=== PATIENT | female | born 1970 | race Caucasian/White ===

== ENCOUNTER 2017-11-03 21:20 | Emergency (ER) | payer OTHER ==
[~2017-11-03] VITALS: Ht 160 cm; Wt 79.4 kg
[2017-11-03 21:40] VITALS: BP 130/78
[2017-11-03 22:56] LABS: BASOPHILS % (AUTO) 0.7 % (0.0-2.0); EOSINOPHILS # (AUTO) 0.1 /CMM (0.0-0.7); EOSINOPHILS % (AUTO) 3.1 % (0.0-6.0); HEMATOCRIT 35 % (33-45); HEMOGLOBIN 12.3 g/dL (11.5-14.8); LYMPHOCYTES # (AUTO) 1.3 /CMM (0.8-4.8); LYMPHOCYTES % (AUTO) 28.5 % (20.0-44.0); MEAN CORPUSCULAR HEMOGLOBIN 32 PG (26.0-33.0); MEAN CORPUSCULAR HGB CONC 35 g/dl (31.0-36.0); MEAN CORPUSCULAR VOLUME 93 fL (82-100); MONOCYTES # (AUTO) 0.2 /CMM (0.1-1.30); MONOCYTES % (AUTO) 4.8 % (2.0-12.0); NEUTROPHILS % (AUTO) 62.9 % (43.0-81.0); PLATELET COUNT (AUTO) 231 /CMM (150-450); RDW COEFFICIENT OF VARIATION 13.1 (11.5-15.0); RED BLOOD CELL COUNT(AUTO) 3.81 MIL/uL (4.0-5.2); WHITE BLOOD COUNT (AUTO) 4.7 K/uL (4.3-11.0)
[2017-11-03 23:04] LABS: CALCIUM, SERUM 8.7 mg/dL (8.5-10.1); CREATININE 1.4 mg/dL (0.6-1.3); POTASSIUM 3.8 mmol/L (3.5-5.1)
[2017-11-03 23:46] LABS: THYROID STIMULATING HORMONE 278.751 uIU/mL (0.358-3.74)
--- NOTE | 2017-11-04 00:24 | NUR ---
Patient discharged to home in stable condition. Written and verbal after care instructions given. Patient verbalizes understanding of instruction. ambulatory with a steady gait noted. pt aaox4 no acute distress noted, resp even and unlabored.
== END 2017-11-04 00:27 | disposition home or self-care (01) ==
LOC: ER 21:20
DX: Z76.0 Encounter for issue of repeat prescription (principal); R60.0 Localized edema; E03.9 Hypothyroidism, unspecified
CPT/HCPCS: 36415; 80048-TC; 84439-TC; 84443-TC; 85025-TC; 93970-TC; A4606; Z7610

== ENCOUNTER 2018-06-17 20:22 | Emergency (ER) | payer OTHER ==
[~2018-06-17] VITALS: Ht 157.5 cm; Wt 79.4 kg
--- NOTE | 2018-06-17 22:30 | NUR ---
BIBRA 94% AOX3 VERABLIZING OF BLE REDNESS AND SWELLING. AMBULATE WELL. NO SOB OR DISTRESS. AFEBRILE. NO -N/V/D/ VSS. MS MADE AWARE.
--- NOTE | 2018-06-18 | NUR ---
LAB DRAWN AT BEDSIDE,
[2018-06-18 00:41] LABS: BASOPHILS % (AUTO) 0.7 % (0.0-2.0); EOSINOPHILS % (AUTO) 2.1 % (0.0-6.0); HEMATOCRIT 30 % (33-45); LYMPHOCYTES # (AUTO) 1.2 /CMM (0.8-4.8); LYMPHOCYTES % (AUTO) 18.9 % (20.0-44.0); MEAN CORPUSCULAR HGB CONC 33 g/dl (31.0-36.0); MEAN CORPUSCULAR VOLUME 95 fL (82-100); MONOCYTES # (AUTO) 0.3 /CMM (0.1-1.30); MONOCYTES % (AUTO) 4.6 % (2.0-12.0); NEUTROPHILS # (AUTO) 4.7 /CMM (1.8-8.9); NEUTROPHILS % (AUTO) 73.7 % (43.0-81.0); PLATELET COUNT (AUTO) 294 /CMM (150-450); RDW COEFFICIENT OF VARIATION 13.6 (11.5-15.0); RED BLOOD CELL COUNT(AUTO) 3.16 MIL/uL (4.0-5.2); WHITE BLOOD COUNT (AUTO) 6.4 K/uL (4.3-11.0)
[2018-06-18 00:55] LABS: INR 0.96 (0.87-1.13)
[2018-06-18 00:57] LABS: CALCIUM, SERUM 8.8 mg/dL (8.5-10.1); CARBON DIOXIDE 32 mmol/L (21-32); CHLORIDE 100 mmol/L (98-107); CREATININE 1.7 mg/dL (0.6-1.3); GLUCOSE 96 mg/dL (74-106); POTASSIUM 3.6 mmol/L (3.5-5.1); SODIUM SERUM 138 mmol/L (136-145); UREA NITROGEN, BLOOD 19 mg/dL (7-18)
[2018-06-18 01:02] LABS: ALANINE AMINOTRANSFERASE 59 U/L (12-78); ALBUMIN 3.9 g/dL (3.4-5.0); ALKALINE PHOSPHATASE 81 U/L (46-116); ASPARTATE AMINOTRANSFERASE 107 U/L (15-37); BILIRUBIN,DIRECT 0.1 mg/dL (0.0-0.2); BILIRUBIN,TOTAL 0.4 mg/dL (0.2-1.0); TOTAL PROTEIN, SERUM 7.5 g/dL (6.4-8.2)
[2018-06-18 01:03] LABS: TROPONIN I < 0.017 ng/mL (0.00-0.056)
[2018-06-18 01:40] LABS: THYROID STIMULATING HORMONE 105.18 uIU/mL (0.358-3.74)
--- NOTE | 2018-06-18 02:50 | NUR ---
Patient discharged to home in stable condition. Written and verbal after care instructions given. Patient verbalizes understanding of instruction. PA EXPLAINED ABOUT DIAGNOSIS. PT DC ACCOMPANIED BY FRIEND. VSS.
[2018-06-18 03:25] VITALS: BP 126/79
== END 2018-06-18 03:26 | disposition home or self-care (01) ==
LOC: ER 20:25
DX: E03.9 Hypothyroidism, unspecified (principal); R60.0 Localized edema; I45.81 Long QT syndrome
CPT/HCPCS: 36415; 71045; 80048; 80076; 83880; 84443; 84484; 85025; 85730; 93005; 99285; A4606; Z7610

== ENCOUNTER 2020-02-10 17:24 | Emergency (ER) | payer SELFPAY ==
[~2020-02-10] VITALS: Ht 160 cm; Wt 79.4 kg
[2020-02-10 17:42] VITALS: BP 130/79
--- NOTE | 2020-02-10 18:12 | NUR ---
Patient discharged to home in stable condition. Written and verbal after care instructions given. Patient verbalizes understanding of instruction.
== END 2020-02-10 18:13 | disposition home or self-care (01) ==
LOC: ER 17:30
DX: E03.9 Hypothyroidism, unspecified (principal); R60.0 Localized edema; Z76.0 Encounter for issue of repeat prescription; Z60.2 Problems related to living alone

== ENCOUNTER 2021-08-03 16:57 | Inpatient (IN) | payer SELFPAY ==
[~2021-08-03] VITALS: Ht 160 cm; Wt 76.7 kg
[2021-08-03] MEDS ORDERED: VANCOMYCIN 1 GM in IV D5W 250 ML IV ONE (17:30)
[2021-08-03] MEDS ORDERED: TDAP [DIPH/PERTUSSIS/TET] 0.5 ML VIAL IM ONE ×2 (17:30→17:58)
[2021-08-03] MEDS ORDERED: IV NS 0.9% 1,000 ML BAG IV ONE (17:30)
[2021-08-03] MEDS ORDERED: ACETAMINOPHEN ES 500 MG TABLET PO ONE (17:30)
--- NOTE | 2021-08-03 17:31 | NUR ---
c/o left elbow pain x 4 days, 04/16 ps. PT AAOX4, RR EVEN & UNLABORED. DENIES CP, SOB, DIZZINESS, N/V AT THIS TIME. PT SEEN & EVAL'D BY GORGE WELLS. WILL CONT TO MONITOR.
[2021-08-03 17:43] LABS: BASOPHILS % (AUTO) 0.5 % (0.0-2.0); EOSINOPHILS % (AUTO) 1.3 % (0.0-6.0); HEMATOCRIT 37 % (33-45); HEMOGLOBIN 12.2 g/dL (11.5-14.8); LYMPHOCYTES # (AUTO) 1.2 K/uL (0.8-4.8); LYMPHOCYTES % (AUTO) 13.2 % (20.0-44.0); MEAN CORPUSCULAR HGB CONC 33 g/dl (31.0-36.0); MEAN CORPUSCULAR VOLUME 91 fL (82-100); MONOCYTES # (AUTO) 0.4 K/uL (0.1-1.30); MONOCYTES % (AUTO) 4.5 % (2.0-12.0); NEUTROPHILS # (AUTO) 7.4 K/uL (1.8-8.9); NEUTROPHILS % (AUTO) 80.5 % (43.0-81.0); PLATELET COUNT (AUTO) 268 K/uL (150-450); RED BLOOD CELL COUNT(AUTO) 4.08 MIL/uL (4.0-5.2); WHITE BLOOD COUNT (AUTO) 9.2 K/uL (4.3-11.0)
[2021-08-03 17:56] LABS: CALCIUM, SERUM 8.2 mg/dL (8.5-10.1); CREATININE 1.2 mg/dL (0.6-1.3); POTASSIUM 3.3 mmol/L (3.5-5.1)
[2021-08-03] MEDS ORDERED: ACETAMINOPHEN ES 500 MG TABLET ONE (17:56)
[2021-08-03 18:00] LABS: ALBUMIN 3.4 g/dL (3.4-5.0); BILIRUBIN,DIRECT 0.1 mg/dL (0.0-0.2); BILIRUBIN,TOTAL 0.5 mg/dL (0.2-1.0); TOTAL PROTEIN, SERUM 7.6 g/dL (6.4-8.2)
--- NOTE | 2021-08-03 18:08 | NUR ---
MOVE SHEET SUBMITTED AND CALLED FOR BED.
[2021-08-03] MEDS ORDERED: POTASSIUM CHLORIDE 20 MEQ TAB.PRT.SR PO ONE ×2 (18:26→18:30)
--- NOTE | 2021-08-03 18:31 | NUR ---
MEDICATED PER GORGE WELLS'S ORDER, PT ABA WELL. WILL CONT TO MONITOR.
[2021-08-03] MEDS ORDERED: CALCIUM CARBONATE 500 MG TAB.CHEW ONE (20:52)
[2021-08-03] MEDS ORDERED: CALCIUM CARBONATE 500 MG TAB.CHEW PO ONE (21:00)
--- NOTE | 2021-08-03 21:05 | NUR ---
PATIENT AMBULATES TO RESTROOM AND RETURNED TO BED. PT TOLERATING PO FLUIDS. VSS. WILL CONTINUE TO MONITOR.
--- NOTE | 2021-08-03 21:30 | NUR ---
CALLED [facility], PAGED DR GARCÍA
--- NOTE | 2021-08-03 22:50 | NUR ---
REPORT GIVEN TO AMBREEN TOBIAS
--- NOTE | 2021-08-03 23:07 | NUR ---
PATIENT TRANSFERRED, VSS.
--- NOTE | 2021-08-03 23:16 | NUR ---
FRONT DESK MANAGER NOTES RECEIVED PT FROM John TO RM.[id number] VIA ÁLVARO ACCOMPANIED BY CONTENT EDITOR. DX. CELLULITS, CC: L-ELBOW PAIN X4DAYS. PT AWAKE, A/OX4, ABLE TO VERBALIZE NEEDS. ASSESSED SKIN, WITH L-UPPER ARM/L-ELBOW SWOLLEN AND HARD TO TOUCH, WITH RAISED RED/HARDENED SKIN ON ANTECUBITAL AREA. PT REPORTS THAT SHE USES METH ABOUT EVERY OTHER DAY AND USES THIS SITE FOR INJECTIONS. PT STATES THAT THE LAST TIME SHE USED METH WAS 4 DAYS AGO, AND THAT'S ALSO THE TIME THAT SHE STARTED ON A PROGRAM "NARCOTICS ANONYMOUS" AT [facility] WHERE SHE SAID SHE CURRENTLY LIVES IN. PT DENIES PAIN AT THIS TIME, BUT STATES THAT THE AREA IS PAINFUL WHEN TOUCHED. PT IN NO ACUTE DISTRESS. ORIENTED TO ROOM, STAFF AND POLICIES. PT VERBALIZED UNDERSTANDING. PT AMBULATORY WITH SLOW, STEADY GAIT. SAFETY MEASURES IN PLACE. WILL CONT TO MONITOR.
[2021-08-03] MEDS ORDERED: Z GUARD REMEDY 2 OZ OINT TP PRN (23:30)
[2021-08-03] MEDS ORDERED: MAG HYDROX/AL HYDROX/SIMETH 30 ML UDC PO PRN (23:30)
[2021-08-03] MEDS ORDERED: ACETAMINOPHEN 325 MG TABLET PO PRN (23:30)
[2021-08-03] MEDS ORDERED: ZOLPIDEM TARTRATE 5 MG TABLET PO PRN (23:30)
[2021-08-03] MEDS ORDERED: IV NS 0.9% 1,000 ML IV PRN (23:30)
[2021-08-03] MEDS ORDERED: ONDANSETRON HCL/PF 4 MG/2 ML VIAL IVP PRN (23:30)
[2021-08-03] MEDS ORDERED: MAGNESIUM HYDROXIDE 30 ML UDC PO PRN (23:30)
[2021-08-03] MEDS ORDERED: PIPERACILLIN /TAZOBACTAM 3.375 G VIAL IV ONE (23:54)
[2021-08-03] MEDS: ZOSYN IVPB 3.375 G in IV D5W 50ml IV SCH (23:55)
--- NOTE | 2021-08-03 23:55 | NUR ---
RN NOTE OBTAINED ZOSYN 3.375G FROM CHARGE NURSE FROM [facility]
[2021-08-03 23:58] VITALS: BP 123/82
[2021-08-04] MEDS: HYDROCODONE/APAP 5/325MG TABLET PO PRN ×4 (02:16→22:47)
--- NOTE | 2021-08-04 02:16 | NUR ---
MS RN NOTES PATIENT CURRENT C/O 7/10 SHARP PAIN IN LEFT ARM. PATIENT WAS GIVEN 1 TAB OF NORCO (5/325MG) PO AT THIS TIME. WILL CONTINUE TO MONITOR THE PATIENT.
--- NOTE | 2021-08-04 02:16 | NUR ---
MS RN NOTES PATIENT C/O 7/10 SHARP PAIN IN LEFT ARM. PATIENT WAS GIVEN 1 TAB OF NORCO (5/325MG) PO. WILL MONITOR THE PATIENT.
[2021-08-04 05:10] VITALS: BP 123/82
[2021-08-04] MEDS ORDERED: PIPERACILLIN /TAZOBACTAM 3.375 G VIAL IV ONE (05:37)
[2021-08-04] MEDS: ZOSYN IVPB 3.375 G in IV D5W 50ml IV SCH ×4 (05:53→23:28)
--- NOTE | 2021-08-04 05:57 | NUR ---
RN NOTE OBTAINED ZOSYN 3.375G FROM CHARGE NURSE FROM [facility]
[2021-08-04 06:54] LABS: BASOPHILS # (AUTO) 0.1 K/uL (0.0-0.2); BASOPHILS % (AUTO) 1.1 % (0.0-2.0); EOSINOPHILS % (AUTO) 1.2 % (0.0-6.0); HEMATOCRIT 34 % (33-45); HEMOGLOBIN 11.3 g/dL (11.5-14.8); LYMPHOCYTES # (AUTO) 1.2 K/uL (0.8-4.8); MEAN CORPUSCULAR HGB CONC 34 g/dl (31.0-36.0); MEAN CORPUSCULAR VOLUME 91 fL (82-100); MONOCYTES # (AUTO) 0.5 K/uL (0.1-1.30); MONOCYTES % (AUTO) 5.3 % (2.0-12.0); NEUTROPHILS # (AUTO) 7.1 K/uL (1.8-8.9); NEUTROPHILS % (AUTO) 79.4 % (43.0-81.0); PLATELET COUNT (AUTO) 202 K/uL (150-450)
--- NOTE | 2021-08-04 07:14 | NUR ---
MS/RN CLOSING NOTE PT RESTING IN BED, EASILY AROUSABLE TO STIMULI. PT SLEPT WELL DURING THE NIGHT. NO ACUTE EVENTS NOTED. PT ABLE TO AMBULATE TO BR INDEPENDENTLY WITH STEADY GAIT. IV SITE TO R-AC INTACT/PATENT, INFUSING NS @75ML/HR. PT IN NO ACUTE DISTRESS. SAFETY MEASURES MAINTAINED. ALL NEEDS ATTENDED TO.
[2021-08-04 07:35] LABS: CALCIUM, SERUM 8.6 mg/dL (8.5-10.1); CREATININE 1.1 mg/dL (0.6-1.3); PHOSPHORUS 3.4 mg/dL (2.5-4.9); POTASSIUM 3.6 mmol/L (3.5-5.1)
[2021-08-04 08:00] VITALS: BP 99/70
--- NOTE | 2021-08-04 08:17 | NUR ---
MS RN OPENING NOTES RECEIVED Pt AWAKE IN BED A/O X4. Pt SLEPT WELL DURING THE NIGHT. NO SIGNS OF PAIN OR DISTRESS NOTED AT THIS TIME. Pt ABLE TO MAKE NEEDS KNOWN AND AMBULATES TO BR INDEPENDENTLY WITH STEADY GAIT. IV ACCESS ON R-AC 20g. IT IS INTACT & PATENT, INFUSING NS @75ML/HR. SAFETY MEASURES IN PLACE: BED IS LOCKED AND IN LOWEST POSITION, 2 SIDE RAILS UP, BEDSIDE TABLE AND CALL LIGHT ARE WITHIN REACH. WILL CONTINUE TO MONITOR THROUGHOUT THE SHIFT
[2021-08-04] MEDS: PANTOPRAZOLE 40 MG TABLET.DR PO SCH (08:36)
[2021-08-04] MEDS: VANCOMYCIN 1 GM in IV D5W 250ml IV SCH ×2 (08:36→20:08)
[2021-08-04] MEDS ORDERED: LEVO112T39 PO (08:41)
[2021-08-04 08:42] LABS: THYROID STIMULATING HORMONE 129.971 uIU/mL (0.358-3.74)
[2021-08-04] MEDS: LEVOTHYROXINE INJ 100 MCG VIAL IV SCH (12:42)
--- NOTE | 2021-08-04 19:20 | NUR ---
MS RN OPENING NOTE PT RESTING IN BED, A/OX4, DENIES PAIN AT THIS TIME. RESPIRATIONS EVEN/UNLABORED. IV SITE R-AC #20G INTACT/PATENT, RUNNING NS @75ML/HR. PT WITH DRESSING TO L-ARM IN PLACE, C/D/I. PT AMBULATES TO BR INDEPENDENTLY WITH STEADY GAIT. PT IN NO ACUTE DISTRESS. SAFETY MEASURES MAINTAINED, BED IN LOWEST LOCKED POSITION, S/R UP X2, CALL LIGHT WITHIN REACH. WILL CONT TO MONITOR.
--- NOTE | 2021-08-04 19:39 | NUR ---
MS RN CLOSING NOTES PT. AWAKE IN BED A/O X4. NO SIGNS OF PAIN OR DISTRESS NOTED AT THIS TIME. Pt ABLE TO MAKE NEEDS KNOWN AND AMBULATES TO BR INDEPENDENTLY WITH STEADY GAIT. IV ACCESS ON R-AC 20g. IT IS INTACT & PATENT ON SALINE LOCK. SAFETY MEASURES IN PLACE: BED IS LOCKED AND IN LOWEST POSITION, 2 SIDE RAILS UP, BEDSIDE TABLE AND CALL LIGHT ARE WITHIN REACH. WILL ENDORSE TO THE NEXT SHIFT FOR CHRISTOPHER.
[2021-08-04 20:00] VITALS: BP 116/70
[2021-08-05] MEDS: HYDROCODONE/APAP 5/325MG TABLET PO PRN ×2 (02:05→07:53)
[2021-08-05] MEDS: ZOSYN IVPB 3.375 G in IV D5W 50ml IV SCH (05:34)
--- NOTE | 2021-08-05 07:20 | NUR ---
MS/RN CLOSING NOTE PT RESTING IN BED, EASILY AROUSABLE TO STIMULI, DENIES PAIN AT THIS TIME. PT SLEPT WELL DURING THE NIGHT. NO ACUTE EVENTS NOTED. PT ABLE TO AMBULATE TO BR INDEPENDENTLY WITH STEADY GAIT. IV SITE TO R-AC INTACT/PATENT, INFUSING NS @75ML/HR. PT IN NO ACUTE DISTRESS. SAFETY MEASURES MAINTAINED. ALL NEEDS ATTENDED TO.
--- NOTE | 2021-08-05 07:30 | NUR ---
MS RN OPENING NOTES RECEIVED PT AWAKE IN BED A/O X4. NO SIGNS OF PAIN OR DISCOMFORT NOTED AT THIS TIME. ON ROOM AIR, NO SOB NOTED, BREATHING EVEN AND UNLABORED. PT ABLE TO MAKE NEEDS KNOWN AND AMBULATES TO BR INDEPENDENTLY WITH STEADY GAIT. IV ACCESS ON R-AC #20G, INTACT & PATENT. SAFETY MEASURES IN PLACE: BED IS LOCKED AND IN LOWEST POSITION, 2 SIDE RAILS UP, BEDSIDE TABLE AND CALL LIGHT ARE WITHIN REACH. WILL CONTINUE TO MONITOR THROUGHOUT THE SHIFT
[2021-08-05 07:44] LABS: BASOPHILS # (AUTO) 0.1 K/uL (0.0-0.2); BASOPHILS % (AUTO) 0.9 % (0.0-2.0); EOSINOPHILS % (AUTO) 2.2 % (0.0-6.0); HEMATOCRIT 33 % (33-45); HEMOGLOBIN 11.2 g/dL (11.5-14.8); LYMPHOCYTES # (AUTO) 1.3 K/uL (0.8-4.8); LYMPHOCYTES % (AUTO) 19.4 % (20.0-44.0); MEAN CORPUSCULAR HGB CONC 34 g/dl (31.0-36.0); MEAN CORPUSCULAR VOLUME 90 fL (82-100); MONOCYTES # (AUTO) 0.3 K/uL (0.1-1.30); MONOCYTES % (AUTO) 4.8 % (2.0-12.0); NEUTROPHILS % (AUTO) 72.7 % (43.0-81.0); PLATELET COUNT (AUTO) 236 K/uL (150-450); RED BLOOD CELL COUNT(AUTO) 3.69 MIL/uL (4.0-5.2); WHITE BLOOD COUNT (AUTO) 6.8 K/uL (4.3-11.0)
[2021-08-05] MEDS: PANTOPRAZOLE 40 MG TABLET.DR PO SCH (07:53)
[2021-08-05 08:00] VITALS: BP 128/78
[2021-08-05] MEDS: LEVOTHYROXINE INJ 100 MCG VIAL IV SCH (08:01)
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
[2021-08-05 08:50] LABS: CALCIUM, SERUM 8.4 mg/dL (8.5-10.1); CREATININE 1.2 mg/dL (0.6-1.3); MAGNESIUM 2.1 mg/dL (1.8-2.4); PHOSPHORUS 3.5 mg/dL (2.5-4.9); POTASSIUM 3.4 mmol/L (3.5-5.1)
--- NOTE | 2021-08-05 09:45 | NUR ---
RN NOTES PT CALLED TO HER ROOM. SHE REMOVED HER WOUND DRESSING ON THE LEFT ARM. CLEANSED WOUND WITH NS, PAT DRIED AND COVERED WITH CLEAN DRY DRESSING.
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
--- NOTE | 2021-08-05 10:45 | NUR ---
RN NOTES CALLED [employer], BUT NO ANSWER. LEFT MESSAGE REGARDING THE INCIDENT FOR PT.
--- NOTE | 2021-08-05 15:00 | NUR ---
SW attempted to meet with pt. for safe DC planning. However, pt. had left AMA.
== END 2021-08-05 10:00 | disposition left against medical advice (07) | DRG 603 ==
LOC: ER 17:01 → MED 22:34
PROVIDERS: ADMIT Student in an Organized Health Care Education/Training Program; ATTEND Student in an Organized Health Care Education/Training Program
DX: L03.114 Cellulitis of left upper limb (principal); L02.414 Cutaneous abscess of left upper limb; Z20.822 Contact with and (suspected) exposure to COVID-19; E87.6 Hypokalemia; E03.9 Hypothyroidism, unspecified; Z59.00 Homelessness unspecified; F15.10 Other stimulant abuse, uncomplicated
CPT/HCPCS: 36415; 80048-TC; 80061-TC; 80076-TC; 80202-TC; 83605-TC; 83735-TC; 84100-TC; 84439-TC; 84443-TC; 85025-TC; 87040-TC; 87070-TC; 87081-TC; 90715; A6403; C9803; G0378; J2543; J3370; J7030; J7060

== ENCOUNTER 2021-08-06 09:57 | Inpatient (IN) | payer SELFPAY ==
[~2021-08-06] VITALS: Ht 160 cm; Wt 84.4 kg
[~2021-08-06 09:57] MED LIST: LEVO112T39 PO
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
[2021-08-06 11:08] LABS: BASOPHILS # (AUTO) 0.1 K/uL (0.0-0.2); BASOPHILS % (AUTO) 1.4 % (0.0-2.0); EOSINOPHILS % (AUTO) 2.2 % (0.0-6.0); HEMATOCRIT 33 % (33-45); HEMOGLOBIN 11.2 g/dL (11.5-14.8); LYMPHOCYTES # (AUTO) 2.4 K/uL (0.8-4.8); LYMPHOCYTES % (AUTO) 37.6 % (20.0-44.0); MEAN CORPUSCULAR HGB CONC 34 g/dl (31.0-36.0); MEAN CORPUSCULAR VOLUME 90 fL (82-100); MONOCYTES # (AUTO) 0.3 K/uL (0.1-1.30); MONOCYTES % (AUTO) 4.8 % (2.0-12.0); NEUTROPHILS # (AUTO) 3.4 K/uL (1.8-8.9); PLATELET COUNT (AUTO) 333 K/uL (150-450); RED BLOOD CELL COUNT(AUTO) 3.72 MIL/uL (4.0-5.2); WHITE BLOOD COUNT (AUTO) 6.3 K/uL (4.3-11.0)
[2021-08-06 11:17] LABS: CALCIUM, SERUM 8.3 mg/dL (8.5-10.1); POTASSIUM 3.4 mmol/L (3.5-5.1)
[2021-08-06] MEDS ORDERED: HYDROCODONE/APAP 5/325MG TABLET PO PRN (12:30)
[2021-08-06] MEDS ORDERED: MAG HYDROX/AL HYDROX/SIMETH 30 ML UDC PO PRN (12:30)
[2021-08-06] MEDS ORDERED: ACETAMINOPHEN 325 MG TABLET PO PRN (12:30)
[2021-08-06] MEDS ORDERED: ONDANSETRON HCL/PF 4 MG/2 ML VIAL IVP PRN (12:30)
[2021-08-06] MEDS ORDERED: MAGNESIUM HYDROXIDE 30 ML UDC PO PRN (12:30)
[2021-08-06] MEDS ORDERED: Z GUARD REMEDY 2 OZ OINT TP PRN (12:30)
[2021-08-06] MEDS ORDERED: VANCOMYCIN 1 GM in IV D5W 250 ML IV ONE (13:30)
--- NOTE | 2021-08-06 13:45 | NUR ---
MOVE SHEET SUBMITTED.
--- NOTE | 2021-08-06 14:00 | NUR ---
PT AMBULATED TO RESTROOM
--- NOTE | 2021-08-06 14:03 | NUR ---
[facility] REPAGED.
--- NOTE | 2021-08-06 14:10 | NUR ---
PT RETURNED FROM BATHROOM AND ASSISTED TO BED
--- NOTE | 2021-08-06 14:49 | NUR ---
CALLED FOR BED.
--- NOTE | 2021-08-06 15:38 | NUR ---
CALLED [facility] AGAIN
[2021-08-06] MEDS ORDERED: IOHEXOL-300 100 ML VIAL IV ONE (16:27)
[2021-08-06] MEDS ORDERED: IV NS 0.9% 250 ML IV ONE (16:27)
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
[2021-08-06] MEDS: PIPERACILLIN /TAZOBACTAM 3.375 G in IV D5W 50 ML IV SCH (18:23)
--- NOTE | 2021-08-06 20:23 | NUR ---
MS BED 118-2
--- NOTE | 2021-08-06 20:42 | NUR ---
REPORT GIVEN TO KENNY.
--- NOTE | 2021-08-06 20:49 | NUR ---
PT TRANSFERRED TO [facility].
--- NOTE | 2021-08-06 20:50 | NUR ---
ADMIT NOTE RECEIVED PATIENT FROM ER, TRANSFERRED TO ROOM 118-2. PATIENT SAFELY AMBULATED TO BED. PT IS ALERT AND ORIENTED X3, ABLE TO MAKE NEEDS KNOWN. ON ROOM AIR, O2 SAT 97%. NO S/S OF RESPIRATORY DISTRESS. DENIES ANY PAIN OR DISCOMFORT. IV ACCESS ON RIGHT AC #20 PATENT AND INTACT. SKIN ASSESSMENT DONE, NOTED WITH LEFT ARM WOUND/CELLULITIS. BILATERAL LOWER LEG EDEMA +2. ABLE TO LIST A FEW BELONGINGS, HOWEVER PATIENT DID NOT WANT STAFF TO LOOK THROUGH HER PURSE. EXPLAINED IMPORTANCE OF CHECKING, AND REFUSED ADAMANTLY. ORIENTED PATIENT TO ROOM AND USE OF CALL LIGHT. BED LOCKED AND IN LOWEST POSITION. ALL NEEDS ANTICIPATED.
[2021-08-07] MEDS: PIPERACILLIN /TAZOBACTAM 3.375 G in IV D5W 50 ML IV SCH ×3 (00:07→11:23)
[2021-08-07] MEDS: VANCOMYCIN 1 GM in IV D5W 250ml IV SCH ×2 (02:34→13:38)
[2021-08-07 04:00] VITALS: BP 110/68
--- NOTE | 2021-08-07 06:58 | NUR ---
WOUND CARE CONSULT: REVIEWED CHART, NURSING DOCUMENTATION AND PHOTO WHICH INDICATES PURULENT WOUND TO LEFT UPPER ARM, PRESENT ON ADMISSION. AWAITING ORTHO CONSULT. RECOMMENDATIONS MADE FOR WOUND CARE AND DISCUSSED WITH NURSING STAFF. IN AGREEMENT WITH PLAN OF CARE. Addendum: 08/07/21 at 0704 by COLTON HILLMAN WNDNU CORRECTION: ORTHO CONSULT WAS DONE.
--- NOTE | 2021-08-07 07:18 | NUR ---
RN NOTE PATIENT IS AWAKE, ALERT, AND ORIENTED. ON ROOM AIR, O2 SAT 100%. NO S/S OF RESPIRATORY DISTRESS. DENIES ANY PAIN OR DISCOMFORT. IV ACCESS ON RIGHT AC #20 PATENT AND INTACT. ALL DUE MEDS GIVEN ORDERED AND TOLERATED WELL. NO ADVERSE EFFECT NOTED. BED LOCKED AND IN LOWEST POSITION. CALL LIGHT WITHIN REACH. WILL ENDORSE TO AM SHIFT.
[2021-08-07] MEDS ORDERED: LEVOTHYROXINE INJ 100 MCG VIAL IV SCH (07:30)
[2021-08-07] MEDS: PANTOPRAZOLE 40 MG TABLET.DR PO SCH (07:30)
--- NOTE | 2021-08-07 07:30 | NUR ---
MS RN OPENING NOTES RECEIVED PATIENT AWAKE ON BED AND A/O X4. ON ROOM AIR TOLERATING WELL. NO SOB NOTED. NOT IN DISTRESS. WITH NO COMPLAINTS OF PAIN OR DISCOMFORT AT THIS TIME. WITH IV ACCESS AT RIGHT AC G20 SALINE LOCKED, PATENT AND INTACT. SAFETY MEASURES IN PLACE. CALL LIGHT WITHIN REACH. BED ON LOWEST AND LOCKED POSITION, SIDE RAILS UP X2. WILL CONTINUE TO MONITOR.
[2021-08-07 08:22] LABS: BASOPHILS # (AUTO) 0.1 K/uL (0.0-0.2); BASOPHILS % (AUTO) 1.3 % (0.0-2.0); EOSINOPHILS % (AUTO) 3.1 % (0.0-6.0); HEMATOCRIT 37 % (33-45); HEMOGLOBIN 12.2 g/dL (11.5-14.8); LYMPHOCYTES # (AUTO) 1.6 K/uL (0.8-4.8); LYMPHOCYTES % (AUTO) 26.4 % (20.0-44.0); MEAN CORPUSCULAR HGB CONC 33 g/dl (31.0-36.0); MEAN CORPUSCULAR VOLUME 92 fL (82-100); MONOCYTES # (AUTO) 0.4 K/uL (0.1-1.30); MONOCYTES % (AUTO) 6.5 % (2.0-12.0); NEUTROPHILS # (AUTO) 3.8 K/uL (1.8-8.9); NEUTROPHILS % (AUTO) 62.7 % (43.0-81.0); PLATELET COUNT (AUTO) 217 K/uL (150-450); RED BLOOD CELL COUNT(AUTO) 4.01 MIL/uL (4.0-5.2); WHITE BLOOD COUNT (AUTO) 6.1 K/uL (4.3-11.0)
[2021-08-07 08:44] LABS: CALCIUM, SERUM 8.6 mg/dL (8.5-10.1); CREATININE 1.3 mg/dL (0.6-1.3); MAGNESIUM 2.6 mg/dL (1.8-2.4); PHOSPHORUS 4.7 mg/dL (2.5-4.9); POTASSIUM 3.8 mmol/L (3.5-5.1)
[2021-08-07] MEDS: NICOTINE PATCH (7MG) 7 MG PATCH.TD24 TD SCH (08:52)
--- NOTE | 2021-08-07 11:12 | NUR ---
"SS Consult: SS consult for homelessness. Pt. Is a 51-year-old female. Pt. demonstrates adequate insight to the reason for hospitalization. Pt. was oriented x3, alert, and cooperative. During interview, pt. was capable of following directions, made appropriate eye-contact, and appeared unkempt. Evidenced by: messy hair. Pt.s speech was at a normal rate. SW explored pt.s Hx of mental health and substance abuse. Pt. reported having Hx of depression/anxiety. Per pt., she has Hx of methamphetamine, but is not currently using. Pt. reported no suicidal or homicidal. Pt. denies auditory hallucinations, visual hallucinations, paranoia, or delusions. SW explored pt.s living situation. Per pt., she is currently homeless and lives in tiny houses. Per pt., she reports having adequate support from friends. Pt. was willing to sign homeless waiver, and its placed in pt.s chart. Plan: SW provided available homeless and addiction resources and pt. accepted. Once discharge, per pt., [facility] [address not provided]. Resources Provided: Year-round shelters: [place] [address] [place] [address] ; [facility] [address] [place] [address]; [place] [facility] [id number] [facility] [address] Winter Shelters: [place] Libia [place] Provider: [facility] [place] Address: [address] [place], [address] # of Beds: 47 Population Served: [facility] 6 | [facility] Reena Dia [place] Provider: [facility] Address: [address], [address] # of Beds: 66 Population Served: [facility] Addashop [place] Provider: [facility] Address: [address] [facility], [address] # of Beds: 56 Population Served: [facility] Boubacar [place] Provider: /[facility] Address: [address] [facility], [address] # of Beds: 49 Population Served: [place] SPA 8 | [place] Provider: [facility] Serve Address: [address] [facility] [address]valos[address] # of Beds: 37 Population Served: [place] Hygiene: [facility]: [address] [place] ; [facility] [address] [facility] ; [facility] [address] [place] . Food Resources: [place] [facility] at [facility]- [address] [place]; Meet Each Need with Dignity ([facility]) [address] [facility] [place]; [facility] [address] [facility] [facility]; [facility] [address] [facility]. Mental Health resources provided: [facility] [address] [place], [place] [phone] ; [facility] [address] [facility] [address], [place], [place] [id number] ; [place] [facility] [address], [place] [phone] ; [facility] [address] [place], [place] [address] Healthcare Clinics: [facility] [address] [place]. [place] ; [facility] [address] [facility] [address] [place] [address]; [facility] Health [place] [address] [facility]. [place] [phone] Counseling--[facility] [address] [facility], [facility] [place], [place] [phone] (Specializes in in-depth psychotherapy for emotional distress: anxiety, depression, interpersonal conflicts, life transitions, childhood abuse) [place] [id number] [place] [address] (Assist with solving problem marital difficulties, separation & divorce, aging parents, & grief, chronic & terminal illness) [facility] [address] [place] [address] (Deal with loss & grief, anxiety, marital difficulties) Homebound/Mental Health Services [address] [facility] [facility] [address] [place], [place] [phone] (Provide in-home mental services to people who are incapable of leaving their homes) Organization for Needs of the Elderly Senior Service/Resource Center [address] [place] [address] [facility] [address] [facility] [place] [address] PSYCHIATRIC OUTPATIENT SERVICES [facility] Partial Hospitalization and Intensive Outpatient Program (Managed Care and [place] Only)[address] [facility] [phone] [facility] Partial Hospitalization and Outpatient [id number] [place], [place] [phone] [facility] Mental Health [place] Cag[address] [facility]. [address] [place], [place] [phone] [facility] Partial Hospitalization and Outpatient [id number] [place], [phone] Substance Abuse resources provided included: [facility] Substance Abuse Self-Helpline (SAS) ; CRI -HELP [address] [facility]. [place] [address] ; [facility] [address] [facility] [address] ; [facility] [address] [facility] [address] ; [facility] [place] [address] [facility] [address] ; [facility] [address] [place] [facility] [address] ; [facility] [address] [facility] [phone] ; [facility] Substance Abuse Helpline(SAS)-[facility] ; [facility] ; [facility] [place]; [facility]; [facility] [place]; [facility] Pravin [place]; [facility]; [facility]; [facility]; [facility], [facility]. [place]; Alcoholics Anonymous -SFV; Jk-Hgjr-Rlyxobj ; Marijuana Anonymous -SFV; Narcotics Anonymous www.na.org;"
[2021-08-07 12:00] VITALS: BP 110/68
--- NOTE | 2021-08-07 18:42 | NUR ---
MS RN CLOSING NOTES PATIENT RESTING ON BED AND A/O X4. ON ROOM AIR TOLERATING WELL. NO SOB NOTED. NOT IN DISTRESS. WITH NO COMPLAINTS OF PAIN OR DISCOMFORT AT THIS TIME. WITH IV ACCESS AT RIGHT AC G20 SALINE LOCKED, PATENT AND INTACT. DUE MEDS GIVEN. SAFETY MEASURES IN PLACE. CALL LIGHT WITHIN REACH. BED ON LOWEST AND LOCKED POSITION, SIDE RAILS UP X2. WILL ENDORSE TO NEXT SHIFT FOR CHRISTOPHER.
[2021-08-07 20:00] VITALS: BP 121/77
[2021-08-07] MEDS: METRONIDAZOLE 500 MG TABLET PO SCH (22:08)
[2021-08-07] MEDS: CEFEPIME 2 GM in IV D5W 100 ML IV SCH (22:08)
[2021-08-08] MEDS: VANCOMYCIN 0.75 GM in IV D5W 250 ML IV SCH ×2 (02:07→13:28)
[2021-08-08 04:00] VITALS: BP 140/78
[2021-08-08] MEDS: METRONIDAZOLE 500 MG TABLET PO SCH ×3 (06:25→20:23)
--- NOTE | 2021-08-08 07:40 | NUR ---
MS RN OPENING NOTES RECEIVED PATIENT AWAKE ON BED AND A/O X4. ON ROOM AIR, TOLERATING WELL. NO SOB NOTED. NO SIGNS OR SYMPTOMS OF DISTRESS NOTED. WITH NO COMPLAINTS OF PAIN OR DISCOMFORT AT THIS TIME. WITH IV ACCESS AT RIGHT AC G20 SALINE LOCKED, PATENT AND INTACT. SAFETY MEASURES IN PLACE. CALL LIGHT WITHIN REACH. BED ON LOWEST AND LOCKED POSITION, SIDE RAILS UP X2. WILL CONTINUE TO MONITOR FOR CHANGES IN CONDITION.
[2021-08-08 08:12] LABS: BASOPHILS # (AUTO) 0.1 K/uL (0.0-0.2); BASOPHILS % (AUTO) 0.9 % (0.0-2.0); EOSINOPHILS % (AUTO) 2.7 % (0.0-6.0); HEMATOCRIT 37 % (33-45); HEMOGLOBIN 12.2 g/dL (11.5-14.8); LYMPHOCYTES % (AUTO) 23.3 % (20.0-44.0); MEAN CORPUSCULAR HGB CONC 33 g/dl (31.0-36.0); MEAN CORPUSCULAR VOLUME 91 fL (82-100); MONOCYTES # (AUTO) 0.6 K/uL (0.1-1.30); MONOCYTES % (AUTO) 7.3 % (2.0-12.0); NEUTROPHILS # (AUTO) 5.6 K/uL (1.8-8.9); NEUTROPHILS % (AUTO) 65.8 % (43.0-81.0); PLATELET COUNT (AUTO) 312 K/uL (150-450); RED BLOOD CELL COUNT(AUTO) 4.05 MIL/uL (4.0-5.2); WHITE BLOOD COUNT (AUTO) 8.5 K/uL (4.3-11.0)
[2021-08-08 08:18] LABS: CALCIUM, SERUM 8.6 mg/dL (8.5-10.1); CREATININE 1.3 mg/dL (0.6-1.3); MAGNESIUM 2.6 mg/dL (1.8-2.4); PHOSPHORUS 4.8 mg/dL (2.5-4.9)
[2021-08-08] MEDS: PANTOPRAZOLE 40 MG TABLET.DR PO SCH (08:24)
[2021-08-08] MEDS: NICOTINE PATCH (7MG) 7 MG PATCH.TD24 TD SCH (08:26)
[2021-08-08] MEDS: CEFEPIME 2 GM in IV D5W 100 ML IV SCH ×3 (08:59→20:25)
[2021-08-08 12:00] VITALS: BP 140/78
[2021-08-08] MEDS: LEVOTHYROXINE INJ 100 MCG VIAL IV SCH (12:32)
--- NOTE | 2021-08-08 18:10 | NUR ---
MS STITCH WELDER NOTES RECEIVED TRANSFER FROM [facility]. PATIENT MEDICALLY STABLE. WILL CONTINUE TO MONITOR.
--- NOTE | 2021-08-08 18:51 | NUR ---
MS RN CLOSING NOTES PATIENT REMAINS IN BED, AWAKE, A/O X4. ON ROOM AIR, TOLERATING WELL. NO SOB NOTED. NO SIGNS OR SYMPTOMS OF DISTRESS NOTED. WITH NO COMPLAINTS OF PAIN OR DISCOMFORT AT THIS TIME. WITH IV ACCESS AT RIGHT AC G20 SALINE LOCKED, PATENT AND INTACT. SAFETY MEASURES IN PLACE. CALL LIGHT WITHIN REACH. BED ON LOWEST AND LOCKED POSITION, SIDE RAILS UP X2. WILL ENDORSE TO ROOF CEMENT AND PAINT MAKER NURSE FOR CHRISTOPHER.
--- NOTE | 2021-08-08 18:59 | NUR ---
MS TRANSFER NOTES PT WAS TRANSFERRED WITH STABLE VITAL SIGNS. ALL BELONGINGS SENT WITH CHART. REPORT GIVEN TO KATIUSKA
--- NOTE | 2021-08-08 19:15 | NUR ---
RN NOTE PT AWAKE, A/OX4, AMBULATING TO BR WITH STEADY GAIT. SHE DENIES ANY PAIN/DISCOMFORT AT THIS TIME. RESPIRATIONS EVEN/UNLABORED. IV SITE: R-FA #20G INTACT/PATENT/FLUSHES WELL. WITH LUPILLO CELLULITIS WITH DRESSING C/D/I. PT IN NO ACUTE DISTRESS. SAFETY MEASURES IN PLACE. WILL CONT TO MONITOR.
[2021-08-08 20:00] VITALS: BP 116/69
[2021-08-08 20:33] VITALS: BP 116/69
[2021-08-09] MEDS: VANCOMYCIN 0.75 GM in IV D5W 250 ML IV SCH (02:28)
[2021-08-09] MEDS: CEFEPIME 2 GM in IV D5W 100 ML IV SCH ×2 (05:05→12:39)
[2021-08-09] MEDS: METRONIDAZOLE 500 MG TABLET PO SCH ×2 (05:05→12:39)
--- NOTE | 2021-08-09 06:54 | NUR ---
RN NOTE PT RESTING IN BED, EASILY AROUSABLE TO STIMULI. SHE DENIES PAIN AT THIS TIME. NO ACUTE EVENTS DURING THE NIGHT. PT AMBULATES TO BR INDEPENDENTLY. SAFETY MEASURES MAINTAINED.
--- NOTE | 2021-08-09 07:30 | NUR ---
MS RN OPENING NOTES RECEIVED PATIENT AWAKE ON BED AND A/O X4. ON ROOM AIR, TOLERATING WELL. NO SOB NOTED. NO SIGNS OR SYMPTOMS OF DISTRESS NOTED. WITH NO COMPLAINTS OF PAIN OR DISCOMFORT AT THIS TIME. WITH IV ACCESS AT RIGHT AC G20 SALINE LOCKED, PATENT AND INTACT. SAFETY MEASURES IN PLACE. CALL LIGHT WITHIN REACH. BED ON LOWEST AND LOCKED POSITION, SIDE RAILS UP X2. WILL CONTINUE TO MONITOR THE PATIENT.
[2021-08-09] MEDS: LEVOTHYROXINE INJ 100 MCG VIAL IV SCH (07:46)
[2021-08-09 07:48] LABS: BASOPHILS # (AUTO) 0.1 K/uL (0.0-0.2); EOSINOPHILS % (AUTO) 2.4 % (0.0-6.0); HEMATOCRIT 38 % (33-45); HEMOGLOBIN 12.6 g/dL (11.5-14.8); LYMPHOCYTES # (AUTO) 2.2 K/uL (0.8-4.8); LYMPHOCYTES % (AUTO) 28.4 % (20.0-44.0); MEAN CORPUSCULAR HGB CONC 33 g/dl (31.0-36.0); MEAN CORPUSCULAR VOLUME 91 fL (82-100); MONOCYTES # (AUTO) 0.5 K/uL (0.1-1.30); MONOCYTES % (AUTO) 6.1 % (2.0-12.0); NEUTROPHILS # (AUTO) 4.9 K/uL (1.8-8.9); NEUTROPHILS % (AUTO) 62.1 % (43.0-81.0); PLATELET COUNT (AUTO) 394 K/uL (150-450); RED BLOOD CELL COUNT(AUTO) 4.21 MIL/uL (4.0-5.2); WHITE BLOOD COUNT (AUTO) 7.8 K/uL (4.3-11.0)
[2021-08-09] MEDS: PANTOPRAZOLE 40 MG TABLET.DR PO SCH (07:55)
[2021-08-09 08:32] VITALS: BP 138/80
[2021-08-09] MEDS: NICOTINE PATCH (7MG) 7 MG PATCH.TD24 TD SCH (08:57)
[2021-08-09 09:00] VITALS: BP 138/80
[2021-08-09 09:53] LABS: CALCIUM, SERUM 9.1 mg/dL (8.5-10.1); CREATININE 1.5 mg/dL (0.6-1.3); MAGNESIUM 2.6 mg/dL (1.8-2.4); PHOSPHORUS 4.6 mg/dL (2.5-4.9); POTASSIUM 4.3 mmol/L (3.5-5.1)
[2021-08-09] MEDS ORDERED: AMOX-430 PO (14:33)
[2021-08-09] MEDS ORDERED: LEVO137T24 PO (14:39)
[2021-08-09 15:00] LABS: BILIRUBIN,URINE NEGATIVE (NEGATIVE); COLOR,URINE YELLOW (YELLOW); LEUKOCYTE ESTERASE ,URINE NEGATIVE (NEGATIVE); NITRITE, URINE NEGATIVE (NEGATIVE); PH,URINE 7.5 (5.0-8.0); PROTEIN,URINE NEGATIVE (NEGATIVE); UGLUCOSE NEGATIVE (NEGATIVE); UROBILINOGEN,URINE 0.2 EU/dL (0.2)
--- NOTE | 2021-08-09 16:26 | NUR ---
SERIALS LIBRARIAN NOTES: DISCHARGE PATIENT IN GOOD CONDITION, VITAL SIGNS NORMAL. PATIENT THE DIGITAL MEDIA ASSOCIATE OF INSTRUCTIONS VERBALIZED UNDERSTANDING . IV ACCESS REMOVED. COVERED WITH GAUZE. NO BLEEDING NOTED. BELONGINGS ACCOUNTED AND SIGNED FOR . ARM BAND REMOVED. WALKED WITH THE PATIENT TO THE LOBBY . PATIENT LEFT UNIT IN STABLE CONDITION AT 1609 . MD AND CHARGE NURSE AWARE OF THE DISCHARGE.
== END 2021-08-09 16:15 | disposition home or self-care (01) | DRG 603 ==
LOC: ER 10:03 → MEDSG1 20:39 → MED 08-08 17:54
PROVIDERS: ADMIT Registered Nurse; ATTEND Registered Nurse
DX: L03.114 Cellulitis of left upper limb (principal); L02.414 Cutaneous abscess of left upper limb; E03.9 Hypothyroidism, unspecified; Z20.822 Contact with and (suspected) exposure to COVID-19; Z59.00 Homelessness unspecified; Z91.19 Patient's noncompliance with other medical treatment and regimen; F17.210 Nicotine dependence, cigarettes, uncomplicated; F19.10 Other psychoactive substance abuse, uncomplicated; Z79.890 Hormone replacement therapy; F15.10 Other stimulant abuse, uncomplicated
CPT/HCPCS: 36415; 73080-TC; 73201-TC; 80048-TC; 80202-TC; 83605-TC; 83735-TC; 84100-TC; 84443-TC; 85025-TC; 85652-TC; 86140-TC; 86803; 87040-TC; 87070-TC; 87081-TC; 87806; A6253; G0378; J0692; J2543; J3370; J7050; J7060; Q9967; U0003

== ENCOUNTER 2021-12-28 18:45 | Emergency (ER) | payer MEDICAID ==
[~2021-12-28] VITALS: Ht 165.1 cm; Wt 82.1 kg
[~2021-12-28 18:45] MED LIST changes: +AMOX-430 PO; -LEVO112T39 PO; +LEVO137T24 PO
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
--- NOTE | 2021-12-28 19:48 | NUR ---
L AC 20 G ESTABLISHED
[2021-12-28] MEDS ORDERED: NALOXONE HCL 0.4 MG/ML AMPUL IM ONE (20:00)
[2021-12-28] MEDS ORDERED: NALOXONE HCL 0.4 MG/ML AMPUL ONE (20:05)
[2021-12-28] MEDS ORDERED: NALOXONE PREFILLED SYRINGE 2 MG/2 ML SYRINGE ONE (20:07)
--- NOTE | 2021-12-28 20:52 | NUR ---
PT DECLINING TO SIGN DC PAPERS. MOTIVATIONAL DISCHARGE PER SECERITY PLACED
--- NOTE | 2021-12-28 21:05 | NUR ---
Patient discharged in stable condition. Written and verbal after care instructions given. PT ambulatory with a steady gait
[2021-12-28 21:32] VITALS: BP 149/89
== END 2021-12-28 21:32 | disposition home or self-care (01) ==
LOC: ER 19:09
DX: T40.411A Poisoning by fentanyl or fentanyl analogs, accidental (unintentional), initial encounter (principal); E03.9 Hypothyroidism, unspecified; Z60.2 Problems related to living alone; Z79.899 Other long term (current) drug therapy; Y92.410 Unspecified street and highway as the place of occurrence of the external cause
CPT/HCPCS: 96372; 99283; J2310 ×2

== ENCOUNTER 2021-12-28 21:31 | Emergency (ER) | payer MEDICAID ==
[~2021-12-28] VITALS: Ht 167.6 cm; Wt 68.0 kg
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
[2021-12-28 22:09] LABS: BASOPHILS % (AUTO) 0.5 % (0.0-2.0); HEMATOCRIT 39 % (33-45); LYMPHOCYTES # (AUTO) 1.3 K/uL (0.8-4.8); LYMPHOCYTES % (AUTO) 14.3 % (20.0-44.0); MEAN CORPUSCULAR HGB CONC 33 g/dl (31.0-36.0); MEAN CORPUSCULAR VOLUME 92 fL (82-100); MONOCYTES # (AUTO) 0.4 K/uL (0.1-1.30); MONOCYTES % (AUTO) 3.9 % (2.0-12.0); NEUTROPHILS # (AUTO) 7.4 K/uL (1.8-8.9); NEUTROPHILS % (AUTO) 80.3 % (43.0-81.0); PLATELET COUNT (AUTO) 306 K/uL (150-450); RED BLOOD CELL COUNT(AUTO) 4.27 MIL/uL (4.0-5.2); WHITE BLOOD COUNT (AUTO) 9.3 K/uL (4.3-11.0)
[2021-12-28 22:18] LABS: CALCIUM, SERUM 9.2 mg/dL (8.5-10.1); CARBON DIOXIDE 33 mmol/L (21-32); CHLORIDE 99 mmol/L (98-107); CREATININE 1.3 mg/dL (0.6-1.3); GLUCOSE 104 mg/dL (74-106); POTASSIUM 4.1 mmol/L (3.5-5.1); SODIUM SERUM 136 mmol/L (136-145); UREA NITROGEN, BLOOD 16 mg/dL (7-18)
[2021-12-28 22:23] LABS: ALANINE AMINOTRANSFERASE 67 U/L (12-78); ALBUMIN 3.6 g/dL (3.4-5.0); ALCOHOL, BLOOD < 3 mg/dL (0-0); ALKALINE PHOSPHATASE 90 U/L (46-116); ASPARTATE AMINOTRANSFERASE 138 U/L (15-37); BILIRUBIN,DIRECT 0.1 mg/dL (0.0-0.2); BILIRUBIN,TOTAL 0.3 mg/dL (0.2-1.0); TOTAL PROTEIN, SERUM 7.7 g/dL (6.4-8.2)
--- NOTE | 2021-12-28 22:23 | NUR ---
URINE COLLECTED AND SENT TO LAB. PT AMBULATORY TO RESTROOM.
[2021-12-28 22:24] LABS: ACETAMINOPHEN 0 ug/ml (10-30)
--- NOTE | 2021-12-28 22:40 | NUR ---
COVID ANTIGEN SWAB COLLECTED AND SENT TO LAB
[2021-12-28 22:55] LABS: BILIRUBIN,URINE NEGATIVE (NEGATIVE); COLOR,URINE YELLOW (YELLOW); LEUKOCYTE ESTERASE ,URINE TRACE (NEGATIVE); NITRITE, URINE POSITIVE (NEGATIVE); PROTEIN,URINE NEGATIVE (NEGATIVE); UGLUCOSE NEGATIVE (NEGATIVE); UROBILINOGEN,URINE 0.2 EU/dL (0.2)
[2021-12-29 06:59] LABS: BACTERIA,URINE 3+ /HPF (None Seen); WBC,URINE 21-50 /HPF (0-3)
--- NOTE | 2021-12-29 12:57 | NUR ---
ASSESSED PT ON BED ASLEEP EASILY AROUSABLE, NOT IN RESPIRATORY DISTRESS, V/S STABLE, KEPT RESTED AND COMFORTABLE. WILL CONTINUE TO MONITOR.
--- NOTE | 2021-12-29 14:29 | NUR ---
CALLED [facility]TAKE AWAITING FEEDBACK PER
--- NOTE | 2021-12-29 17:32 | NUR ---
PATIENT ACCEPTED AT [facility]. # FOR REPORT: [phone] EXT [phone] NURSE: LILLIE
--- NOTE | 2021-12-29 17:34 | NUR ---
[facility]: [facility] [phone]
--- NOTE | 2021-12-29 17:43 | NUR ---
[facility] CALLED FOR TRANSPORT ETA 1844 PER JIMBO.
--- NOTE | 2021-12-29 17:51 | NUR ---
REPORT GIVEN TO EBONIE RN OF [facility]. ACCEPITNG: JOEL STEEL CHIPPER: SANDRA
[2021-12-29] MEDS ORDERED: CEPHALEXIN MONOHYDRATE 500 MG CAPSULE PO ONE ×2 (18:06→18:30)
[2021-12-29 18:48] VITALS: BP 137/74
--- NOTE | 2021-12-29 19:06 | NUR ---
PATIENT PICKED UP BY [facility] UNIT 225 N STABLE CONDITION. ALL BELONGINGS GIVEN TO PATIENT. CLINICALS PROVIDED TO EMT AND PATIENT WILL BE TRANSFERRED TO [facility].
== END 2021-12-29 19:22 ==
LOC: ER 21:38
DX: R45.851 Suicidal ideations (principal); E03.9 Hypothyroidism, unspecified; Z59.00 Homelessness unspecified; R03.0 Elevated blood-pressure reading, without diagnosis of hypertension; F15.10 Other stimulant abuse, uncomplicated; R46.89 Other symptoms and signs involving appearance and behavior; Z20.822 Contact with and (suspected) exposure to COVID-19
CPT/HCPCS: 36415; 80048; 80076; 80143; 80307; 80320; 81001; 84703; 85025; 87077; 87086; 87186; 87426; 99285; C9803; G0480